=== PATIENT | female | born 2000 | race Native Hawaiian/Other Pacific Islander ===

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

== ENCOUNTER 2020-01-06 09:36 | Outpatient (CLI) | payer MEDICAID | END 2020-01-06 09:37 | disposition home or self-care (01) | LOC: SLR 09:36 | PROVIDERS: ATTEND Otolaryngology | DX: G47.33 Obstructive sleep apnea (adult) (pediatric) (principal); R40.0 Somnolence; E66.9 Obesity, unspecified | CPT/HCPCS: G0399 ==

== ENCOUNTER 2020-01-14 16:16 | Emergency (ER) | payer MEDICAID ==
--- NOTE | 2020-01-14 16:21 | Event Note ---
ED Screening Note Date of service: 01/14/20 Time: 16:20 ED Screening Note: Patient complains of sudden onset of lower abdominal pain x last night Patient is tearful with abdominal palpation on exam States urinary frequency This initial assessment/diagnostic orders/clinical plan/treatment(s) is/are subject to change based on patients health status, clinical progression and re- assessment by fellow clinical providers in the ED. Further treatment and workup at subsequent clinical providers discretion. Patient/guardian urged not to elope from the ED as their condition may be serious if not clinically assessed and managed. Initial orders include: Labs
[2020-01-14 16:22] VITALS: BP 136/91
[2020-01-14 16:46] LABS: Basophils # (Auto) 0.1 K/mm3 (0.0-0.1); Basophils % (Auto) 0.8 % (0.0-1.8); Eosinophils # (Auto) 0.2 K/mm3 (0.0-0.4); Eosinophils % (Auto) 2.1 % (0.0-4.3); Hematocrit 37.1 % (30.3-42.9); Hemoglobin 11.7 gm/dl (10.1-14.3); Lymphocytes # (Auto) 2.7 K/mm3 (1.2-5.4); Lymphocytes % (Auto) 27.1 % (13.4-35.0); Mean Corpuscular HGB Conc 32 % (30-34); Mean Corpuscular Volume 74 fl (79-97); Monocytes # (Auto) 0.8 K/mm3 (0.0-0.8); Monocytes % (Auto) 8.2 % (0.0-7.3); Platelet Count 362 K/mm3 (140-440); Red Blood Count 5.02 M/mm3 (3.65-5.03); Red Cell Distribution Width 17.8 % (13.2-15.2)
[2020-01-14 17:08] LABS: Alanine Aminotransferase 32 units/L (7-56); Albumin 4.2 g/dL (3.9-5); Blood Urea Nitrogen 11 mg/dL (7-17); Calcium 9.1 mg/dL (8.4-10.2); Hemolysis Index 5
[2020-01-14 17:19] LABS: BUN/Creatinine Ratio 18
[2020-01-14 17:29] LABS: Bilirubin,Urine NEG (Negative); Blood,Urine NEG (Negative); Color,Urine Yellow (Yellow); Mucus,Urine 3+ /HPF; Protein,Urine <15 mg/dL mg/dL (Negative); Sperm,Urine FEW /HPF (NP); Urobilinogen,Urine < 2.0 mg/dL (<2.0)
[2020-01-14] MEDS ORDERED: LACTATED RINGERS 1,000 ML IV ONE (17:47)
[2020-01-14] MEDS ORDERED: MORPHINE 4 MG/1 ML INJ IV ONE (17:47)
[2020-01-14] MEDS ORDERED: ONDANSETRON 4 MG/2 ML INJ IV ONE (17:47)
--- NOTE | 2020-01-14 17:56 | Emergency Department Report ---
ED General Adult HPI - General Chief complaint: Fever Stated complaint: ABD PAINS Time Seen by Provider: 01/14/20 16:18 Source: patient Mode of arrival: Ambulatory Limitations: No Limitations - History of Present Illness Initial comments: 19-year-old otherwise healthy female present with chief complaint of abdominal pain, gradual onset last night, associated with nausea and vomiting. Denies any diarrhea, constipation, vaginal discharge or bleeding, urinary complaints and is unsure if she has had a fever. Pain is moderate to severe at times, nonrad iating with no alleviating or exacerbating factors. - Related Data Previous Rx's Medication Instructions Recorded Last Taken Type Fluticasone [Flonase] 1 spray NS QDAY #1 bottle 11/23/19 Unknown Rx Oxymetazoline 0.05% [Vicks Sinex] 1 spray NS BID #1 bottle 11/23/19 Unknown Rx Oxymetazoline HCl [12 Hour Nasal 1 spray NS Q12HR PRN #1 bottle 12/15/19 Unknown Rx Relief] Hyoscyamine Subl [Levsin Sl 0.125 0.125 mg SL Q6HR PRN #12 tab 01/14/20 Unknown Rx TAB] Promethazine [Phenergan] 25 mg PO Q6HR PRN #12 tab 01/14/20 Unknown Rx Allergies Allergy/AdvReac Type Severity Reaction Status Date / Time No Known Allergies Allergy Verified 01/14/20 16:17 ED Review of Systems ROS: Stated complaint: ABD PAINS Other details as noted in HPI Comment: All other systems reviewed and negative Gastrointestinal: as per HPI, abdominal pain ED Past Medical Hx - Past Medical History Previous Medical History?: No Additional medical history: Frequent Nosebleeds since 10 years of age - Surgical History Past Surgical History?: No Additional Surgical History: Tonsilectomy - Social History Smoking Status: Never Smoker Substance Use Type: None - Medications Home Medications: Home Medications Medication Instructions Recorded Confirmed Last Taken Type Fluticasone [Flonase] 1 spray NS QDAY #1 bottle 11/23/19 Unknown Rx Oxymetazoline 0.05% [Vicks Sinex] 1 spray NS BID #1 bottle 11/23/19 Unknown Rx Oxymetazoline HCl [12 Hour Nasal 1 spray NS Q12HR PRN #1 bottle 12/15/19 Unknown Rx Relief] Hyoscyamine Subl [Levsin Sl 0.125 0.125 mg SL Q6HR PRN #12 tab 01/14/20 Unknown Rx TAB] Promethazine [Phenergan] 25 mg PO Q6HR PRN #12 tab 01/14/20 Unknown Rx ED Physical Exam - General Limitations: No Limitations General appearance: alert, in no apparent distress - Head Head exam: Present: atraumatic, normocephalic - Eye Eye exam: Present: normal appearance - ENT ENT exam: Present: mucous membranes moist - Neck Neck exam: Present: normal inspection - Respiratory Respiratory exam: Present: normal lung sounds bilaterally. Absent: respiratory distress - Cardiovascular Cardiovascular Exam: Present: regular rate, normal rhythm. Absent: systolic murmur, diastolic murmur, rubs, gallop - GI/Abdominal GI/Abdominal exam: Present: soft, tenderness (Periumbilical and right lower quadrant), normal bowel sounds. Absent: distended, guarding, rebound - Extremities Exam Extremities exam: Present: normal inspection - Back Exam Back exam: Present: normal inspection - Neurological Exam Neurological exam: Present: alert, oriented X3 - Psychiatric Psychiatric exam: Present: normal affect, normal mood - Skin Skin exam: Present: warm, dry, intact, normal color. Absent: rash ED Course Vital Signs 01/14/20 01/14/20 16:17 18:47 Temperature 98.7 F Pulse Rate 93 H Respiratory 20 18 Rate Blood Pressure 136/91 O2 Sat by Pulse 98 Oximetry ED Medical Decision Making - Lab Data Result diagrams: 01/14/20 16:29 01/14/20 16:29 Lab Results 01/14/20 01/14/20 01/14/20 Range/Units 16:29 16:29 16:30 WBC 10.1 (4.5-11.0) K/mm3 RBC 5.02 (3.65-5.03) M/mm3 Hgb 11.7 (10.1-14.3) gm/dl Hct 37.1 (30.3-42.9) % MCV 74 L (79-97) fl MCH 23 L (28-32) pg MCHC 32 (30-34) % RDW 17.8 H (13.2-15.2) % Plt Count 362 (140-440) K/mm3 Lymph % (Auto) 27.1 (13.4-35.0) % [place] % (Auto) 8.2 H (0.0-7.3) % Eos % (Auto) 2.1 (0.0-4.3) % Baso % (Auto) 0.8 (0.0-1.8) % Lymph # (Auto) 2.7 (1.2-5.4) K/mm3 [place] # (Auto) 0.8 (0.0-0.8) K/mm3 Eos # (Auto) 0.2 (0.0-0.4) K/mm3 Baso # (Auto) 0.1 (0.0-0.1) K/mm3 Seg Neutrophils % 61.8 (40.0-70.0) % Seg Neutrophils # 6.2 (1.8-7.7) K/mm3 Sodium 139 (137-145) mmol/L Potassium 3.5 L (3.6-5.0) mmol/L Chloride 104.1 (98-107) mmol/L Carbon Dioxide 25 (22-30) mmol/L Anion Gap 13 mmol/L BUN 11 (7-17) mg/dL Creatinine 0.6 (0.6-1.2) mg/dL Estimated GFR > 60 ml/min BUN/Creatinine Ratio 18 % Glucose 133 H (65-100) mg/dL Calcium 9.1 (8.4-10.2) mg/dL Total Bilirubin 0.20 (0.1-1.2) mg/dL AST 21 (5-40) units/L ALT 32 (7-56) units/L Alkaline Phosphatase 123 (35-129) units/L Total Protein 7.5 (6.3-8.2) g/dL Albumin 4.2 (3.9-5) g/dL Albumin/Globulin Ratio 1.3 % Lipase 32 (13-60) units/L HCG, Qual Negative (Negative) Urine Color (Yellow) Urine Turbidity (Clear) Urine pH (5.0-7.0) Ur Specific [place] (1.003-1.030) Urine Protein (Negative) mg/dL Urine Glucose (UA) (Negative) mg/dL Urine Ketones (Negative) mg/dL Urine Blood (Negative) Urine Nitrite (Negative) Urine Bilirubin (Negative) Urine Urobilinogen (<2.0) mg/dL Ur Leukocyte Esterase (Negative) Urine WBC (Auto) (0.0-6.0) /HPF Urine RBC (Auto) (0.0-6.0) /HPF U Epithel Cells (Auto) (0-13.0) /HPF Urine Mucus /HPF Urine 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) /HPF 01/14/20 Range/Units 16:39 WBC (4.5-11.0) K/mm3 RBC (3.65-5.03) M/mm3 Hgb (10.1-14.3) gm/dl Hct (30.3-42.9) % MCV (79-97) fl MCH (28-32) pg MCHC (30-34) % RDW (13.2-15.2) % Plt Count (140-440) K/mm3 Lymph % (Auto) (13.4-35.0) % [place] % (Auto) (0.0-7.3) % Eos % (Auto) (0.0-4.3) % Baso % (Auto) (0.0-1.8) % Lymph # (Auto) (1.2-5.4) K/mm3 [place] # (Auto) (0.0-0.8) K/mm3 Eos # (Auto) (0.0-0.4) K/mm3 Baso # (Auto) (0.0-0.1) K/mm3 Seg Neutrophils % (40.0-70.0) % Seg Neutrophils # (1.8-7.7) K/mm3 Sodium (137-145) mmol/L Potassium (3.6-5.0) mmol/L Chloride (98-107) mmol/L Carbon Dioxide (22-30) mmol/L Anion Gap mmol/L BUN (7-17) mg/dL Creatinine (0.6-1.2) mg/dL Estimated GFR ml/min BUN/Creatinine Ratio % Glucose (65-100) mg/dL Calcium (8.4-10.2) mg/dL Total Bilirubin (0.1-1.2) mg/dL AST (5-40) units/L ALT (7-56) units/L Alkaline Phosphatase (35-129) units/L Total Protein (6.3-8.2) g/dL Albumin (3.9-5) g/dL Albumin/Globulin Ratio % Lipase (13-60) units/L HCG, Qual (Negative) Urine Color Yellow (Yellow) Urine Turbidity Cloudy (Clear) Urine pH 7.0 (5.0-7.0) Ur Specific [place] 1.021 (1.003-1.030) Urine Protein <15 mg/dl (Negative) mg/dL Urine Glucose (UA) Neg (Negative) mg/dL Urine Ketones Neg (Negative) mg/dL Urine Blood Neg (Negative) Urine Nitrite Neg (Negative) Urine Bilirubin Neg (Negative) Urine Urobilinogen < 2.0 (<2.0) mg/dL Ur Leukocyte Esterase Tr (Negative) Urine WBC (Auto) 3.0 (0.0-6.0) /HPF Urine RBC (Auto) 2.0 (0.0-6.0) /HPF U Epithel Cells (Auto) 34.0 H (0-13.0) /HPF Urine Mucus 3+ /HPF Urine Sperm Few (CASTING OPERATOR HELPER) /HPF - Radiology Data Negative abdomen and pelvis CT - Medical Decision Making 19-year-old healthy female with abdominal pain since last night. Associate with vomiting. On exam right lower quadrant tenderness is noted. Differential diagnoses includes appendicitis, colitis, gastroenteritis among others. Labs and CT will be obtained. Patient with IV fluids morphine and Zofran Labs are stable, CT is negative, patient feels better. Likely viral etiology. Recommend supportive care PCP follow-up return here if worse. - Differential Diagnosis Gastroenteritis, colitis, appendicitis Critical care attestation.: If time is entered above; I have spent that time in minutes in the direct care of this critically ill patient, excluding procedure time. ED Disposition Clinical Impression: Abdominal pain Qualifiers: Abdominal location: unspecified location Qualified Code(s): R10.9 - Unspecified abdominal pain Vomiting Qualifiers: Vomiting type: unspecified Vomiting Intractability: non-intractable Nausea presence: with nausea Qualified Code(s): R11.2 - Nausea with vomiting, unspecified Disposition: DC-01 TO HOME OR SELFCARE Is pt being admited?: No Condition: Good Instructions: Nausea and Vomiting, Adult, [id number], Abdominal Pain, Adult, [id number] Prescriptions: Hyoscyamine Subl [Levsin Sl 0.125 TAB] 0.125 mg SL Q6HR PRN #12 tab PRN Reason: cramps Promethazine [Phenergan] 25 mg PO Q6HR PRN #12 tab PRN Reason: Nausea Referrals: PRIMARY CARE, [Primary Care Provider] - 3-5 Days Time of Disposition: 21:45
--- NOTE | 2020-01-14 21:38 | Cat Scan Report ---
CT ABDOMEN AND PELVIS WITH CONTRAST INDICATION / CLINICAL INFORMATION: rlq pain. TECHNIQUE: Axial CT images were obtained through the abdomen and pelvis after IV contrast. All CT scans at this location are performed using CT dose reduction for ALARA by means of automated exposure control. COMPARISON: None available. FINDINGS: LOWER CHEST: No significant abnormality. HEPATOBILIARY: No significant abnormality. PANCREAS: No significant abnormality. SPLEEN: No significant abnormality. ADRENALS: No significant abnormality. GENITOURINARY: No significant abnormality. GASTROINTESTINAL/MESENTERY: No bowel obstruction or inflammation. Multiple normal and upper limits no rmal size right lower quadrant lymph nodes. Appendix demonstrates no significant abnormality. No free air or significant free fluid RETROPERITONEUM: No significant adenopathy. REPRODUCTIVE ORGANS: Multiple bilateral ovarian follicles. VASCULAR: No significant abnormality. SKELETAL SYSTEM: No significant abnormality. ADDITIONAL FINDINGS: None. IMPRESSION: 1. No acute abdominopelvic abnormality. Signer Name: Richard Steele MD Signed: 01/14/2020 9:34 PM Workstation Name: [id number]
== END 2020-01-14 21:55 | disposition home or self-care (01) ==
LOC: ED 16:16
DX: R10.31 Right lower quadrant pain (principal); R11.2 Nausea with vomiting, unspecified; Z90.89 Acquired absence of other organs; Z79.899 Other long term (current) drug therapy
CPT/HCPCS: 36415; 74177; 80053; 81001; 83690; 84703; 85025; 96361; 96374; 96375; 99284; J2270; J2405; J7120; Q9967

== ENCOUNTER 2020-06-01 01:19 | Emergency (ER) | payer MEDICAID ==
[2020-06-01 02:13] VITALS: BP 146/88
[2020-06-01] MEDS ORDERED: OXYMETAZOLINE 0.05% NASAL SPRAY NS ONE (03:07)
[2020-06-01] MEDS ORDERED: ONDANSETRON 4 MG ODT TAB PO ONE (03:07)
--- NOTE | 2020-06-01 04:31 | Emergency Department Report ---
ED General Adult HPI - General Chief complaint: Nosebleed Stated complaint: NOSE BLEED/NAUSEA/DIZZINESS Time Seen by Provider: 06/01/20 03:06 Source: patient Mode of arrival: Ambulatory Limitations: No Limitations - History of Present Illness Initial comments: Patient is a 19-year-old female who presents for complaint of epistaxis intermittently for the past 3 days. Patient has history of same followed by Dr. CHERYL Osorio , pt denies epistaxis at this time, there is no sob, no stridor, no wheezing, no headache or dizzines, - Related Data Previous Rx's Medication Instructions Recorded Last Taken Type Fluticasone [Flonase] 1 spray NS QDAY #1 bottle 11/23/19 Unknown Rx Oxymetazoline 0.05% [Vicks Sinex] 1 spray NS BID #1 bottle 11/23/19 Unknown Rx Hyoscyamine Subl [Levsin Sl 0.125 0.125 mg SL Q6HR PRN #12 tab 01/14/20 Unknown Rx TAB] Promethazine [Phenergan] 25 mg PO Q6HR PRN #12 tab 01/14/20 Unknown Rx Ondansetron [Zofran Odt] 4 mg PO Q8HR #12 tab.rapdis 06/01/20 Unknown Rx Oxymetazoline 0.05% [Vicks Sinex] 2 spray NS BID #1 bottle 06/01/20 Unknown Rx Oxymetazoline HCl [12 Hour Nasal 1 spray NS Q12HR PRN #1 bottle 06/01/20 Unknown Rx Relief] Allergies Allergy/AdvReac Type Severity Reaction Status Date / Time No Known Allergies Allergy Verified 06/01/20 01:31 ED Review of Systems ROS: Stated complaint: NOSE BLEED/NAUSEA/DIZZINESS Other details as noted in HPI Constitutional: denies: chills, fever Eyes: denies: eye pain, eye discharge, vision change ENT: epistaxis Respiratory: denies: cough, shortness of breath, SOB with exertion, SOB at rest, stridor, wheezing Cardiovascular: denies: chest pain, palpitations Endocrine: no symptoms reported Gastrointestinal: denies: abdominal pain, nausea, diarrhea Genitourinary: denies: urgency, dysuria, discharge Musculoskeletal: as per HPI Skin: denies: rash, lesions Neurological: denies: headache, weakness, paresthesias Psychiatric: denies: anxiety, depression Hematological/Lymphatic: denies: easy bleeding, easy bruising ED Past Medical Hx - Past Medical History Previous Medical History?: No Additional medical history: Frequent Nosebleeds since 10 years of age - Surgical History Additional Surgical History: Tonsilectomy - Social History Smoking Status: Never Smoker Substance Use Type: None - Medications Home Medications: Home Medications Medication Instructions Recorded Confirmed Last Taken Type Fluticasone [Flonase] 1 spray NS QDAY #1 bottle 11/23/19 Unknown Rx Oxymetazoline 0.05% [Vicks Sinex] 1 spray NS BID #1 bottle 11/23/19 Unknown Rx Hyoscyamine Subl [Levsin Sl 0.125 0.125 mg SL Q6HR PRN #12 tab 01/14/20 Unknown Rx TAB] Promethazine [Phenergan] 25 mg PO Q6HR PRN #12 tab 01/14/20 Unknown Rx Ondansetron [Zofran Odt] 4 mg PO Q8HR #12 tab.rapdis 06/01/20 Unknown Rx Oxymetazoline 0.05% [Vicks Sinex] 2 spray NS BID #1 bottle 06/01/20 Unknown Rx Oxymetazoline HCl [12 Hour Nasal 1 spray NS Q12HR PRN #1 bottle 06/01/20 Unknown Rx Relief] ED Physical Exam - General Limitations: No Limitations General appearance: alert, in no apparent distress - Head Head exam: Present: atraumatic, normocephalic, normal inspection - Eye Eye exam: Present: normal appearance, PERRL, EOMI, conjunctival injection. Absent: scleral icterus Pupils: Present: normal accommodation - ENT ENT exam: Absent: normal exam, other - Neck Neck exam: Present: normal inspection, full ROM. Absent: tenderness, meningismus, lymphadenopathy, thyromegaly - Respiratory Respiratory exam: Present: normal lung sounds bilaterally. Absent: respiratory distress, wheezes, stridor, chest wall tenderness - Cardiovascular Cardiovascular Exam: Present: regular rate, normal rhythm, normal heart sounds. Absent: systolic murmur, diastolic murmur, rubs, gallop - GI/Abdominal GI/Abdominal exam: Present: soft, normal bowel sounds. Absent: distended, tenderness, mass - Rectal Rectal exam: Present: deferred - Extremities Exam Extremities exam: Present: normal inspection - Back Exam Back exam: Present: normal inspection - Neurological Exam Neurological exam: Present: alert, oriented X3 - Psychiatric Psychiatric exam: Present: normal affect, normal mood - Skin Skin exam: Present: warm, dry, intact, normal color. Absent: rash ED Course Vital Signs 06/01/20 01:33 Temperature 98.1 F Pulse Rate 107 H Respiratory 16 Rate Blood Pressure 146/88 O2 Sat by Pulse 98 Oximetry ED Medical Decision Making - Medical Decision Making Patient is a 19-year-old female who presents for complaint of epistaxis i ntermittently for the past 3 days. Patient has history of same followed by ENT Dr Osorio , pt denies epistaxis at this time, there is no sob, no stridor, no wheezing, no headache or dizzines, pt nares are patent annon obstructied a this timle. plan dc with rx afrin, follow up ent, ontoihj in 2-3 days. Critical care attestation.: If time is entered above; I have spent that time in minutes in the direct care of this critically ill patient, excluding procedure time. ED Disposition Clinical Impression: Epistaxis Disposition: DC-01 TO HOME OR SELFCARE Is pt being admited?: No Does the pt Need Aspirin: No Condition: Stable Instructions: Nosebleed, Adult Prescriptions: Oxymetazoline HCl [12 Hour Nasal Relief] 1 spray NS Q12HR PRN #1 bottle PRN Reason: nosebleed Oxymetazoline 0.05% [Vicks Sinex] 2 spray NS BID #1 bottle Ondansetron [Zofran Odt] 4 mg PO Q8HR #12 tab.rapdis Referrals: ANNETTE OSORIO MD [Staff Physician] - 3-5 Days Forms: Work/School Release Form(ED) Time of Disposition: 04:59
== END 2020-06-01 05:08 | disposition home or self-care (01) ==
LOC: ED 01:19
DX: R04.0 Epistaxis (principal); Z79.899 Other long term (current) drug therapy; Z90.49 Acquired absence of other specified parts of digestive tract
CPT/HCPCS: 99282; Q0162